=== PATIENT | male | born 1960 | race Caucasian/White ===

== ENCOUNTER 2017-12-25 15:14 | Outpatient (CLI) | payer OTHER ==
[2017-12-25 16:07] LABS: #Eosinphils 0.2 thou/uL (0.0-0.7); #Lymphocytes 1.6 thou/uL (1.20-3.40); #Monocytes 0.5 thou/uL (0.11-0.59); #Neutrophils 2.5 thou/uL (1.40-6.50); %Basophils 0.7 % (0.0-1.0); %Eosinophils 3.7 % (0.0-10.0); %Lymphocytes 33.9 % (21.0-51.0); %Monocytes 9.5 % (0.0-10.0); %Neutrophils 52.2 % (42.0-75.0); Hemoglobin 13.2 g/dL (14.0-18.0); Mean Corpuscular HGB CONC 35.4 g/dL (32.0-36.0); Mean Corpuscular Hemoglobin 32.5 pg (27.0-31.0); Mean Corpuscular Volume 91.9 fL (78.0-98.0); Mean Platelet Volume 7.1 fL (7.4-10.4); Platelet Count 233 thou/uL (130-400); RBC Distribution Width 11.9 % (11.5-14.5); Red Blood Cell (RBC) Count 4.06 mill/uL (4.70-6.10); White Blood Cell (WBC) Count 4.7 thou/uL (4.8-10.8)
[2017-12-25 16:27] LABS: ALT (SGPT) 26 U/L (8-55); AST (SGOT) 23 U/L (5-34); Albumin 4.4 g/dL (3.5-5.0); Alkaline Phosphatase 57 U/L (40-150); Anion Gap 8 mmol/L (10-20); BUN (Urea Nitrogen) 8 mg/dL (8.4-25.7); Bilirubin, Total 1.5 mg/dL (0.2-1.2); Calc. Creatinine Clearance 0 mL/min (70-130); Calcium 9.5 mg/dL (7.8-10.44); Carbon Dioxide 30 mmol/L (22-29); Chloride 101 mmol/L (98-107); Estimated GFR-MDRD 82; Globulin 2.8 g/dL (2.4-3.5); Glucose 95 mg/dL (70-105); Potassium 3.9 mmol/L (3.5-5.1); Protein, Total 7.2 g/dL (6.0-8.3); Sodium 135 mmol/L (136-145)
== END 2017-12-25 15:15 | disposition home or self-care (01) ==
LOC: LABBT 15:14
PROVIDERS: ATTEND Surgery
DX: Z01.818 Encounter for other preprocedural examination (principal); K40.20 Bilateral inguinal hernia, without obstruction or gangrene, not specified as recurrent
CPT/HCPCS: 80053; 85025; 93005; 93010

== ENCOUNTER 2018-01-05 05:57 | Day surgery (SDC) | payer OTHER ==
[2017-12-25 15:37] VITALS: BMI 26.0
[2018-01-05] MEDS ORDERED: CEFAZOLIN/Water 2 GM/20 ML SYRINGE ONE (06:05)
[2018-01-05] MEDS ORDERED: Bupivacaine HCl 0.25%/Epi 0.0005/PF 10 ML VIAL FS ONE (06:26)
[2018-01-05] MEDS ORDERED: Midazolam HCl 2 mg/2 ml Vial ONE ×2 (07:03→07:52)
[2018-01-05] MEDS ORDERED: Fentanyl 250 MCG/5 ML VIAL ONE (07:03)
--- NOTE | 2018-01-05 09:52 | OP ---
DATE OF PROCEDURE: 01/05/2018 PREOPERATIVE DIAGNOSIS: Bilateral inguinal hernia. SURGEON: Lino Zamora M.D. PROCEDURE PERFORMED: Laparoscopic robotic assisted right inguinal hernia repair with mesh. INDICATIONS: This is a 57-year-old male who came in with a right groin bulge and pain and was though t he had a small left inguinal hernia as well. FINDINGS: There was an indirect right inguinal hernia with a cord lipoma, but no left inguinal herni a was seen. PROCEDURE IN DETAIL: After informed consent was obtained, patient was taken to the operating room an d given general endotracheal anesthesia, placed in the supine position. His abdomen was prepped and draped in usual fashion. Local anesthesia infiltrated subcutaneously and deep and a supraumbilical i ncision was performed. Subcu divided sharply. The fascia grasped and the fascia incised. Digital p alpation revealed no local adhesions. A 10-12 trocar inserted. Pneumoperitoneum was created to a pr essure of 15 mmHg. Under direct vision, two 8 mm ports were placed just lateral to the rectus at the level of the first incision. Then, the patient placed in Trendelenburg position and the robot was d ocked and I went down below to the console. The pelvis inspected. There was a right inguinal hernia present, but no left inguinal hernia seen. The peritoneum was opened from median umbilical ligament laterally utilizing electrocautery. Then, using blunt and sharp dissection, the peritoneum was diss ected down to expose the pubic tubercle, cord components, hernia sac as well as a cord lipoma. The h ernia sac was reduced. The cord lipoma was removed. A large contour mesh was inserted. It was sutu red to the pubic tubercle with a 2-0 silk suture, also anterior it was sutured to the abdominal wall just lateral to the epigastric vessels with a 2-0 silk suture tied intracorporeally. Then, the perit oneum was closed with a running 3-0 V-Loc, all sutures were removed. The cord lipoma was also remove d through the umbilical incision. Hemostasis was assured. Trocars and retractors removed. The fasc ia closed with 0 Vicryl suture and the GraNee needle. Skin closed with interrupted 4-0 Rapide. Derm abond applied. The patient tolerated the procedure well and was transferred to recovery in good cond ition. Sponge and needle count verified correct x2.
[2018-01-05] MEDS ORDERED: Fentanyl 100 MCG/2 ML VIAL ONE (09:55)
[2018-01-05] MEDS ORDERED: HYDROcodone/Acetaminophen 5/325 mg Tablet ONE (11:40)
[2018-01-05] MEDS ORDERED: Promethazine HCl 25 MG/ML VIAL ONE (11:43)
[2018-01-05] MEDS ORDERED: Ketorolac Tromethamine 30 MG/ML VIAL ONE (14:07)
[2018-01-05] MEDS ORDERED: Glycopyrrolate 0.2 MG/ML 5 ML SYRINGE ONE (14:07)
[2018-01-05] MEDS ORDERED: PROPOFOL 200 MG/20 ML VIAL ONE (14:07)
[2018-01-05] MEDS ORDERED: Ondansetron HCl/PF 4 MG/2 ML Vial ONE (14:07)
[2018-01-05] MEDS ORDERED: Lidocaine 1% PF 5 ML VIAL ONE (14:07)
== END 2018-01-05 13:30 | disposition home or self-care (01) ==
LOC: SDC 05:57
PROVIDERS: ATTEND Surgery
PROC: 0YU54JZ Supplement Right Inguinal Region with Synthetic Substitute, Percutaneous Endoscopic Approach (ICD-10-PCS; principal; 2018-01-05)
DX: K40.90 Unilateral inguinal hernia, without obstruction or gangrene, not specified as recurrent (principal); D17.6 Benign lipomatous neoplasm of spermatic cord; E78.00 Pure hypercholesterolemia, unspecified; Z79.899 Other long term (current) drug therapy
CPT/HCPCS: 96374; C1781; J1885; J2001; J2250; J2405; J2550; J2704; J3010